=== PATIENT | male | born 1980 | race Caucasian/White ===

== ENCOUNTER 2024-06-30 16:37 | Emergency (ER) | payer SELFPAY ==
[~2024-06-30] VITALS: Ht 182.9 cm; Wt 127.3 kg
[2024-06-30 19:55] VITALS: BP 116/88
== END 2024-06-30 19:55 | disposition home or self-care (01) ==
LOC: ED 16:37
DX: S82.142A Displaced bicondylar fracture of left tibia, initial encounter for closed fracture (principal); V28.49XA Other motorcycle driver injured in noncollision transport accident in traffic accident, initial encounter; Y92.410 Unspecified street and highway as the place of occurrence of the external cause
CPT/HCPCS: 15977; L1830